=== PATIENT | female | born 1995 | race Caucasian/White ===

== ENCOUNTER 2021-10-26 21:04 | Emergency (ER) | payer SELFPAY ==
[2021-10-26 21:12] VITALS: BP 128/74; PULSE 89; RESP 16; TEMP 36.6; O2SAT 98; BMI 27.5
--- NOTE | 2021-10-26 21:19 | ED_ITS ---
HPI - Extremity Injury (Lower) General Chief Complaint: Extremity Pain/Injury, Lower Stated Complaint: Fell and injured RT foot ankle Time Seen by Provider: 10/26/21 21:16 Source: patient and RN notes reviewed Mode of arrival: ambulatory Limitations: no limitations History of Present Illness HPI Narrative: 26-year-old woman presenting to the emergency department with concern of injury to her right ankle. She has never hurt before. She had quite a bit of pain today. Sounds like she just had an inversion injury. Did not hurt anything else. Only other pain it has been more apparently has been childbirth. She did crawl from the scene. But has been able to bear weight-I see her ambulating into the ER on her toes. Moving remarkably fluidly. Treatment initially with bag of ice corn. Also Tylenol. Pain is primarily over the outside of the ankle. Since this is a first-time musculoskeletal injury here she just thought she should be evaluated. Unfamiliar with what to do/expect. Related Data Home Medications Medication Instructions Recorded Confirmed No Known Home Medications 10/26/21 10/26/21 Allergies Allergy/AdvReac Type Severity Reaction Status Date / Time Sulfa (Sulfonamide Allergy Severe Anaphylaxis Verified 10/26/21 21:15 Antibiotics) Review of Systems Status of ROS: Reports: 6 or more systems reviewed and unremarkable except as noted in History and below [facility] Medical History No significant past medical history Surgical History No significant past surgical history Social History Smoking Status: Never smoker Do you use any of these nicotine containing products: None Second hand tobacco smoke exposure: No How often do you have a drink containing alcohol: never How often do you have six or more drinks on one occasion: Never AUDIT-C Alcohol total score: 0 Non-prescribed substance use: denies use Exam Narrative: Exam Narrative: Very pleasant. Carefully casually groomed. NAD. Breathing easily. Favoring the right ankle/leg. In Keshav chillos sandals. As noted ambulated in on toes of left foot. Exam of the right leg shows mild swelling about the right lateral malleolus. She has no base of 5th metatarsal tenderness. No navicular tenderness. No medial malleolar tenderness. No instability to varus or valgus stressors the ankle. Good perfusion and sensation peripherally. Back to the lateral malleolus mild swelling anterior and inferior to the lateral malleolus. There is a little tenderness at the tip though mostly in the soft tissues. No bruising or tenderness on the plantar surface of the foot Const: Vital Signs, click to edit/add: Vital Signs - 24 hr 10/26/21 21:12 10/26/21 21:55 Temperature 97.9 F 97.9 F Pulse Rate 89 Pulse Rate [Right Pulse Oximeter] 89 Respiratory Rate 16 16 Blood Pressure 124/78 Blood Pressure [Ri ght Upper Arm] 128/74 Pulse Oximetry 98 Documenting provider has reviewed patient's vital signs: yes Course Course Hospital Course: Interview and physical exam as above. I did also obtain Charanjit wrap and Aircast. Air cast was placed. She was able to ambulate with more ease and comfort. Vital Signs Vital signs: Initial Vital Signs Temperature 97.9 F 10/26/21 21:12 Temperature Source Temporal Artery Scan 10/26/21 21:12 Pulse Rate 89 10/26/21 21:12 Respiratory Rate 16 10/26/21 21:12 Blood Pressure 128/74 10/26/21 21:12 Blood Pressure Mean 92 10/26/21 21:12 Blood Pressure Position Sitting 10/26/21 21:12 Pulse Oximetry 98 10/26/21 21:12 Oxygen Delivery Method 10/26/21 21:12 Vital Signs Temperature 97.9 F 10/26/21 21:12 Pulse Rate 89 10/26/21 21:12 Respiratory Rate 16 10/26/21 21:12 Blood Pressure 128/74 10/26/21 21:12 Pulse Oximetry 98 10/26/21 21:12 Temperature 97.9 F 10/26/21 21:55 Pulse Rate 89 10/26/21 21:55 Respiratory Rate 16 10/26/21 21:55 Blood Pressure 124/78 10/26/21 21:55 Pulse Oximetry 98 10/26/21 21:12 MDM - Extremity Injury (Lower) MDM Narrative Medical decision making narrative: We discussed [place] ankle rules. I think she would be able to defer x-ray at this time. Ultimately Mabel is in agreement with this plan. I then proposed Aircast. I placed this. She is able to ambulate as noted above. Seemed a little surprised. 4 in Charanjit wrap also dispensed. See discharge recommendations. Discharge Plan Discharge Clinical Impression: Ankle sprain and strain Patient Disposition: Home, Self-Care Condition: Stable Instructions: Ankle Sprain (ED) Additional Instructions: Really important ice as discussed, a few times daily over the next few days. Elevate at rest. Charanjit wrap maybe at night and to hold on the ice bag.. The Aircast is to encour age early mobility but don't push it too much over the next couple of days. Limit walking over the next couple of days. Can add bit by bit over the week. Every couple of days should feel little bit better. Can take up to 800 mg of ibuprofen or up to 1000 mg of acetaminophen per dose. See handout from Sports Medicine patient advisor for ankle sprain rehabilitation. balance retraining is important follow-up in 7-10 days if really not improved. Prescriptions: No Action No Known Home Medications 0RF Stand Alone Forms: [employer]OMIC Info Instructions
[2021-10-26 21:55] VITALS: BP 124/78; PULSE 89; RESP 16; TEMP 36.6
== END 2021-10-26 21:56 | disposition home or self-care (01) ==
PROVIDERS: Emergency Provider Family Medicine
DX: S93.401A Sprain of unspecified ligament of right ankle, initial encounter (principal); X50.1XXA Overexertion from prolonged static or awkward postures, initial encounter
CPT/HCPCS: 99282; 99283